=== PATIENT | female | born 1965 | race Caucasian/White ===

== ENCOUNTER 2023-10-08 13:08 | Emergency (ER) | payer OTHER ==
[~2023-10-08] VITALS: Ht 160 cm; Wt 73.5 kg
[2023-10-08 13:26] VITALS: BP_SYST 142; PULSE 66; RESP 18; TEMP 98.2; O2SAT 95
[2023-10-08] MEDS: PANTOPRAZOLE SODIUM 40 MG/VIAL (PROTONIX) IVP ONE (15:03)
[2023-10-08 15:18] LABS: BASOPHILS # (AUTO) 0.1 K/uL (0.0-0.2); BASOPHILS % (AUTO) 1.5 % (0.0-2.0); EOSINOPHILS # (AUTO) 0.2 K/uL (0.0-0.4); EOSINOPHILS % (AUTO) 2.4 % (0.0-4.0); HEMATOCRIT 38.9 % (36-48); LYMPHOCYTES # (AUTO) 2.4 K/uL (1.0-5.5); LYMPHOCYTES % (AUTO) 27.9 % (20.5-51.5); MEAN CORPUSCULAR HEMOGLOBIN 27 pg (27-31); MEAN CORPUSCULAR HGB CONC 33 % (32-36); MEAN CORPUSCULAR VOLUME 81 fL (79.0-98.0); MONOCYTES # (AUTO) 0.9 K/uL (0.0-1.0); MONOCYTES % (AUTO) 10.7 % (1.7-9.3); NEUTROPHILS % (AUTO) 57.5 % (40.0-70.0); PLATELET COUNT (AUTO) 281 K/uL (130-430); RED BLOOD CELL COUNT(AUTO) 4.78 MIL/uL (4.2-6.2); RED CELL DISTRIBUTION WIDTH 13.9 % (9.0-15.0); WHITE BLOOD COUNT (AUTO) 8.6 K/uL (4.8-10.8)
[2023-10-08 15:43] LABS: ALBUMIN 3.3 g/dL (3.4-4.8); CALCIUM 8.5 mg/dL (8.4-11.0); CREATININE 0.89 mg/dL (0.55-1.30); POTASSIUM 3.4 mmol/L (3.5-5.1); TOTAL BILIRUBIN 0.4 mg/dL (0.0-1.0)
[2023-10-08 16:00] LABS: BILIRUBIN,URINE NEGATIVE (NEGATIVE); BLOOD, URINE NEGATIVE (NEGATIVE); CLARITY/URINE CLEAR (CLEAR); COLOR,URINE YELLOW (YELLOW); GLUCOSE,URINE NEGATIVE (NEGATIVE); KETONES,URINE NEGATIVE (NEGATIVE); LEUKOCYTE ESTERASE ,URINE NEGATIVE (NEGATIVE); NITRITE, URINE NEGATIVE (NEGATIVE); PROTEIN URINE NEGATIVE (NEGATIVE); UROBILINOGEN,URINE 0.2 (0.2-1.0)
[2023-10-08] MEDS ORDERED: OMEP40CA20 PO (16:13)
[2023-10-08 16:26] VITALS: BP_SYST 133; PULSE 63; RESP 16; TEMP 98; O2SAT 95
[2023-10-08 21:50] LABS: BILIRUBIN,DIRECT 0.1 mg/dL (0.0-0.3)
== END 2023-10-08 16:21 | disposition home or self-care (01) ==
LOC: SED 13:08
DX: K29.00 Acute gastritis without bleeding (principal); Z88.2 Allergy status to sulfonamides
CPT/HCPCS: 99285; 74176; 96374; 80076; 80048; 81001; 85025; 86886; 86900; 86901; 36415; C9113; 81003

== ENCOUNTER 2023-12-07 22:09 | Emergency (ER) | payer OTHER ==
[~2023-12-07] VITALS: Ht 160 cm; Wt 72.6 kg
[~2023-12-07 22:09] MED LIST: OMEP40CA20 PO
[2023-12-07 22:52] VITALS: BP_SYST 128; PULSE 86; RESP 20; TEMP 98.8; O2SAT 95
[2023-12-08 00:21] LABS: COVID19 ANTIGEN SOFIA FIA POSITIVE (NEGATIVE); INFLUENZA TYPE A NEGATIVE (NEGATIVE); INFLUENZA TYPE B NEGATIVE (NEGATIVE)
[2023-12-08 01:32] VITALS: BP_SYST 124; PULSE 81; RESP 18; TEMP 99.1; O2SAT 94
== END 2023-12-08 01:10 | disposition home or self-care (01) ==
LOC: SED 22:09
DX: U07.1 COVID-19 (principal); J45.909 Unspecified asthma, uncomplicated; I10 Essential (primary) hypertension; Z88.2 Allergy status to sulfonamides; Z79.899 Other long term (current) drug therapy
CPT/HCPCS: 36415; 71045; 99284